=== PATIENT | female | born 1995 ===

== ENCOUNTER → 2017-01-27 | Outpatient (CLI) | payer MEDICAID ==
[2017-01-27 14:42] LABS: CHLAM PCR NOT DETECTED (NOT DETECT)
== END ==
LOC: LAB 12:55
PROVIDERS: ATTEND Emergency Medicine
DX: B37.3 Candidiasis of vulva and vagina (principal); N76.0 Acute vaginitis; B96.89 Other specified bacterial agents as the cause of diseases classified elsewhere; R35.0 Frequency of micturition
CPT/HCPCS: 87086; 87088; 87491; 87591

== ENCOUNTER 2017-02-08 22:27 | Emergency (ER) | payer MEDICAID ==
[2017-02-08 23:12] VITALS: BP 151/91
--- NOTE | 2017-02-10 13:42 | EKG REPORT ---
SEVERITY:- ABNORMAL ECG - SINUS RHYTHM MULTIPLE VENTRICULAR PREMATURE COMPLEXES : Confirmed by: Estrella Ken MD 10-Feb-2017 13:41:07
== END 2017-02-09 00:45 | disposition left against medical advice (07) ==
LOC: ER 22:27
DX: Z53.21 Procedure and treatment not carried out due to patient leaving prior to being seen by health care provider (principal)
CPT/HCPCS: 93005; 93010